=== PATIENT | female | born 1995 | race Caucasian/White ===

== ENCOUNTER 2017-04-01 20:53 | Emergency (ER) | payer SELFPAY ==
[2017-04-01 21:38] LABS: PLATELET COUNT 329 10^3/uL (150-400)
--- NOTE | 2017-04-01 22:11 | EDPHY ---
General - History Smoking Status: Former smoker Narrative: 7:30 a.m.- Patient was stable throughout my shift and now has been accepted at [facility] for inpatient hospitalization by Maureen CHATTERJEE. We have completed the EMTALA form. (Bethany Davis) CHIEF COMPLAINT: M1, suicidal HISTORY OF PRESENT ILLNESS: Patient presents by EMS and [employer] on a hold from [facility] for suicidal ideation. She reports feeling increasingly depressed, lonely and suicidal over the past few weeks. She has had a chronic history of this as well. She has had multiple thoughts of wanting to but has no definitive plan or intent. She says she really wants help and does not want to . She admits to PTSD, depression drug abuse due to this and social circumstances. She admits to cocaine remotely. She admits to methamphetamine and heroin use 5 days ago. She has no chest pain. No shortness of breath. No modifying factors for complaint. PSYCHIATRIC DIAGNOSES: Depression, PTSD M1/DETAINER: [facility] Department at 20:30 on day presentation REVIEW OF SYSTEMS: Ten systems reviewed and are negative unless otherwise noted in the HPI EXAMINATION General Appearance: Alert, no distress Head: normocephalic, atraumatic Eyes: Pupils equal and round, no conjunctival pallor or injection ENT, Mouth: Mucous membranes moist. Airway patent Neck: Normal inspection, supple, non-tender Respiratory: No retractions or distress Cardiovascular: Regular rate. Symmetric radial pulses 2+ Gastrointestinal: No abdominal distention Neurological: A&O, nonfocal, GCS 15. Skin: Warm and dry, no rash Extremities: Nontender, no pedal edema Psychiatric: Flat affect. Depressed mood. Reports suicidal ideation with no definitive plan or intent. DIFFERENTIAL DIAGNOSES: Including but not limited to suicidal ideation, depression, PTSD, bipolar disorder MDM: 9:05 p.m. Suicidal ideation with no plan or intent. The patient arrives on an M1 hold, thus we are proceeding with medical clearance for evaluation. 10:05 p.m. Patient is positive for cocaine and methamphetamine. But she will not be able to be evaluated till 12 hr post positive test. Laboratory studies are otherwise negative including a negative HCG. 11:30 p.m. Notified by RN that the patient has actually been evaluated by [facility]. They do recommend placement and are attempting to find inpatient placement for. 12:30 a.m. Patient has been evaluated and is awaiting placement. At this time I have discussed the case with Dr. Davis She will assume care the patient at this time. Please see her note for final disposition SUPERVISION: Patient was evaluated in conjunction with the supervising physician. Please see their note for details. (Yordy Juan) - Objective Vital Signs: Initial Vital Signs Temperature (C) 97.9 F 04/01/17 21:00 Heart Rate 116 H 04/01/17 21:00 Respiratory Rate 18 04/01/17 21:00 Blood Pressure 124/96 H 04/01/17 21:00 O2 Sat (%) 99 04/01/17 21:00 O2 Delivery Mode Room Air Allergies/Adverse Reactions: No Known Allergies Allergy (Verified 04/01/17 21:32) Home Medications: Medication Instructions Recorded NK [No Known Home Meds] 08/26/14 Laboratory Results: Laboratory Results 04/01/17 21:28 04/01/17 21:28 Departure - Departure Disposition: [facility] Clinical Impression: Suicidal ideation, Polysubstance abuse Condition: Fair Referrals: Patient,NotPresent [Unknown] - As per Instructions
[2017-04-02 07:55] VITALS: RESP 15
[2017-04-02 10:06] VITALS: BP 100/60; PULSE 80; TEMP 97.7; O2SAT 98
== END 2017-04-02 10:06 | disposition short-term general hospital (02) ==
LOC: EDUNIT#
DX: R45.851 Suicidal ideations (principal); F19.10 Other psychoactive substance abuse, uncomplicated; Z87.891 Personal history of nicotine dependence
CPT/HCPCS: 80305; G0480

== ENCOUNTER 2017-05-27 12:38 | Emergency (ER) | payer SELFPAY ==
[~2017-05-27 12:38] MED LIST: CEPHALEXIN 500 MG CAP PO SCH; SULFAMETHOX/TMP 800/160 MG 1 TAB PO SCH
[2017-05-27 12:44] VITALS: TEMP 97.5
--- NOTE | 2017-05-27 13:51 | EDPHY ---
H & P Time Seen by Provider: 05/27/17 13:50 HPI/ROS: CHIEF COMPLAINT: Left middle finger pain and swelling HISTORY OF PRESENT ILLNESS: Patient is had symptoms for 3 weeks. Pain and swelling at the base of the nail and on the ulnar side. No trauma. No blisters. REVIEW OF SYSTEMS: No other symptoms in the hand or finger PAST MEDICAL HISTORY: Hep C and depression. General Appearance: Alert and conversant, cooperative. Swelling from the D IP on the ulnar side of the left middle finger at the base of the nail extending distally. Normal flexion and extension. Normal capillary refill. Does not have proximal palmar tenderness or tenderness in the finger. Emergency Department course/MDM: Patient presents with likely paronychia. Standard sterile technique and 1% lidocaine local digital block anesthesia. Lateral side of the nail unroofed and moderate amount of pus expressed, prescribed Keflex and Bactrim. Dressing applied. Does not appear to have tenosynovitis or deep space finger infection requiring operative intervention. Smoking Status: Former smoker Constitutional: Initial Vital Signs Temperature (C) 36.4 C 05/27/17 12:41 Allergies/Adverse Reactions: No Known Allergies Allergy (Verified 04/01/17 21:32) Home Medications: Medication Instructions Recorded Cephalexin [Keflex] 500 mg PO QID #40 cap 05/27/17 Sulfamethox/Tmp 800/160 mg 1 tab PO BID@1000,2200 #20 tab 05/27/17 [Bactrim Ds] MDM/Departure - Depart Disposition: Home, Routine, Self-Care Clinical Impression: Paronychia of finger Condition: Good Instructions: Paronychia (ED) Prescriptions: Cephalexin [Keflex] 500 mg PO QID #40 cap Sulfamethox/Tmp 800/160 mg [Bactrim Ds] 1 tab PO BID@1000,2200 #20 tab Referrals: Oj Robison MD [Medical Doctor] - 3-4 days, if not improved
== END 2017-05-27 15:16 | disposition home or self-care (01) ==
PROC: 3E0T3BZ Introduction of Anesthetic Agent into Peripheral Nerves and Plexi, Percutaneous Approach (ICD-10-PCS; principal; 2017-05-27)
DX: L03.012 Cellulitis of left finger (principal); Z87.891 Personal history of nicotine dependence

== ENCOUNTER 2017-05-29 15:10 | Emergency (ER) | payer SELFPAY ==
--- NOTE | 2017-05-29 15:50 | EDPHY ---
H & P Stated Complaint: 4 days body aches all over/abd/chest/back/legs/painful to walk Time Seen by Provider: 05/29/17 15:40 HPI/ROS: CHIEF COMPLAINT: Multiple complaints, chest pain, paronychia HISTORY OF PRESENT ILLNESS: 22-year-old homeless female in the ER via private vehicle with 2 complaints. 1st complaint is 2 days of left-sided nonpleuritic chest pain and epigastric pain with no radiation. Worsened with swallowing and eating. No nausea or vomiting. No back pain. No dyspnea. 2nd complaint is recheck of a left middle digit paronychia which was incised and drained in the ER 3 days ago. She was given prescription for antibiotics at that time but left the emergency department before receiving these antibiotics. She notes continued soft tissue swelling in this area with no lymphangitic streaking, no limitations in range of motion. The patient informed the triage nurse in the were notes on the triage note the patient was having difficulty walking however when I interview the patient she denies this and has no complaints of leg pain, difficulty walking , myalgias or arthralgias. REVIEW OF SYSTEMS: A ten point review of systems was performed and is negative with the exception of the items mentioned in the HPI PAST MEDICAL & SURGICAL HISTORY: No pertinent medical or surgical history SOCIAL HISTORY:Nonsmoker. No drug use. No cocaine use. Homeless. PHYSICAL EXAM (Prior to examination, patient consented to physical exam, hands were washed and my usual and customary physical exam procedures followed) 1) GENERAL: Well-developed, well-nourished, alert and oriented. Appears to be in no acute distress. Appears nontoxic 2) HEAD: Normocephalic, atraumatic 3) HEENT: Pupils equal, round, reactive to light bilaterally. Sclera anicteric. 4) NECK: Full range of motion, no meningeal signs. 5) LUNGS: Clear auscultation bilaterally, no wheezes, no rhonchi, no retractions. 6) HEART: Regular rate and rhythm, no murmur, no heave, no gallop. Chest wall nontender. 7) ABDOMEN: No guarding, mild tenderness to palpation midline epigastrium,, negative McBurney's, negative Khan's, negative Rovsing's, negative peritoneal sign 8) MUSCULOSKELETAL: Left upper extremity: Paronychia of the left middle digit. Negative kanavel, no lymphangitic streaking, pain-free range of motion, no pain along flexor tendon sheath, no abnormal flexion of the digit. 9) BACK: No CVA tenderness, no midline vertebral tenderness, no fluctuance, no step-off, no obvious trauma, no visual or palpable abnormality. 10) SKIN: No rash, no petechiae. 11) Psychiatric: Patient is oriented X 3, there is no agitation. 12) NEURO: Awake, alert, and oriented to person, place and time. Answers questions appropriately. There were no obvious focal neurologic abnormalities. No cerebellar dysfunction. Normal steady gait. Upper and lower extremities bilaterally with strength 5 / 5, reflexes 2+. DIFFERENTIAL DIAGNOSIS: In no particular order, including but not limited to biliary colic, cholecystitis, peptic ulcer disease, pancreatitis, and gastroenteritis, paronychia, infectious tenosynovitis, deep space infection, cellulitis This is a partial list of diagnoses considered. These considerations are based on history, physical exam, past history and reassessment. - Personal History LMP (Females 10-55): Over 28 Days Ago Current Tetanus/Diphtheria Vaccine: Yes - Medical/Surgical History Hx Asthma: No Hx Chronic Respiratory Disease: No Hx Diabetes: No Hx Cardiac Disease: No Hx Renal Disease: No Hx Cirrhosis: No Hx Alcoholism: No Hx HIV/AIDS: No Hx Splenectomy or Spleen Trauma: No Other PMH: prior vaginal infection; coccyx fx Apr 2012, +ANTIBODIES TO HEP C, depression - Social History Smoking Status: Former smoker Constitutional: Initial Vital Signs Temperature (C) 36.7 C 05/29/17 15:14 Heart Rate 83 05/29/17 15:14 Respiratory Rate 18 05/29/17 15:14 Blood Pressure 110/74 05/29/17 15:14 O2 Sat (%) 99 05/29/17 15:14 O2 Delivery Mode Room Air Allergies/Adverse Reactions: No Known Allergies Allergy (Verified 05/29/17 15:14) Home Medications: Medication Instructions Recorded Cephalexin [Keflex] 500 mg PO QID #40 cap 05/27/17 Sulfamethox/Tmp 800/160 mg 1 tab PO BID@1000,2200 #20 tab 05/27/17 [Bactrim Ds] Pantoprazole Sodium [Protonix 40mg 40 mg PO DAILY #30 tab 05/29/17 (RX)] Medical Decision Making Procedures: Procedure: Paronychia drainage. The patient's paronychia was located on the left middle digit. I obtained verbal consent from the patient to drain the the paronychia who was informed about the possibility of bleeding and pain. The paronychia was incised with a scalpel and a mild amount of purulent drainage was expressed. I irrigated the wound and placed some packing. The patient tolerated the procedure well. The procedure was performed by myself. ED Course/Re-evaluation: 4:30 p.m.: Re-evaluation, sleeping 4:55 p.m.: Re-evaluation, sleeping, easily woken. Patient was re-evaluated with serial examinations. Regarding her paronychia this was inside drained achieving relief is. Doubt infectious flexor tenosynovitis or deep space infection. Her antibiotics were Keflex and Bactrim have been filled via the hospital MAP program and I encouraged her to take these which she was not previously doing. Regarding her left-sided chest pain and epigastric pain, symptoms have been occurring for 2 days, she has normal sinus rhythm on EKG, normal chest x-ray, normal troponin, normal D-dimer. I think that WI, PE less than likely in this patient. Doubt acute pancreatitis. Discussed possible esophagitis, peptic ulcer disease. I have given her GI cocktail and recommend starting on proton pump inhibitor. - Data Points Laboratory Results: Laboratory Results 05/29/17 15:59 05/29/17 15:59 05/29/17 05/29/17 05/29/17 15:59 15:59 15:59 WBC RBC Hgb Hct MCV MCH MCHC RDW Plt Count MPV Neut % (Auto) Lymph % (Auto) [facility] % (Auto) Eos % (Auto) Baso % (Auto) Nucleat RBC Rel Count Absolute Neuts (auto) Absolute Lymphs (auto) Absolute Monos (auto) Absolute Eos (auto) Absolute Basos (auto) Absolute Nucleated RBC Immature Gran % Immature Gran # D-Dimer 0.47 ug/mLFEU ug/mLFEU (0.00-0.50) Sodium 142 mEq/L mEq/L (135-145) Potassium 4.3 mEq/L mEq/L (3.5-5.2) Chloride 105 mEq/L mEq/L (97-110) Carbon Dioxide 30 mEq/l mEq/l (22-31) Anion Gap 7 mEq/L L mEq/L (8-16) BUN 8 mg/dL mg/dL (7-23) Creatinine 0.7 mg/dL mg/dL (0.6-1.0) Estimated GFR > 60 Glucose 80 mg/dL mg/dL (70-100) Calcium 9.3 mg/dL mg/dL (8.5-10.4) Total Bilirubin 0.2 mg/dL mg/dL (0.1-1.4) Conjugated Bilirubin 0.1 mg/dL mg/dL (0.0-0.5) Unconjugated Bilirubin 0.1 mg/dL mg/dL (0.0-1.1) AST 16 IU/L IU/L (14-46) ALT 27 IU/L IU/L (9-52) Alkaline Phosphatase 61 IU/L IU/L (38-126) Troponin I < 0.012 ng/mL ng/mL (0.000-0.034) Total Protein 6.3 g/dL g/dL (6.3-8.2) Albumin 3.5 g/dL g/dL (3.5-5.0) Lipase 53 IU/L IU/L (23-300) Beta HCG, Qual NEGATIVE 05/29/17 15:59 WBC 6.76 10^3/uL 10^3/uL (3.80-9.50) RBC 4.31 10^6/uL 10^6/uL (4.18-5.33) Hgb 11.6 g/dL L g/dL (12.6-16.3) Hct 36.5 % L % (38.0-47.0) MCV 84.7 fL fL (81.5-99.8) MCH 26.9 pg L pg (27.9-34.1) MCHC 31.8 g/dL L g/dL (32.4-36.7) RDW 14.6 % % (11.5-15.2) Plt Count 325 10^3/uL 10^3/uL (150-400) MPV 8.1 fL L fL (8.7-11.7) Neut % (Auto) 54.8 % % (39.3-74.2) Lymph % (Auto) 35.8 % % (15.0-45.0) [facility] % (Auto) 7.8 % % (4.5-13.0) Eos % (Auto) 1.2 % % (0.6-7.6) Baso % (Auto) 0.3 % % (0.3-1.7) Nucleat RBC Rel Count 0.0 % % (0.0-0.2) Absolute Neuts (auto) 3.70 10^3/uL 10^3/uL (1.70-6.50) Absolute Lymphs (auto) 2.42 10^3/uL 10^3/uL (1.00-3.00) Absolute Monos (auto) 0.53 10^3/uL 10^3/uL (0.30-0.80) Absolute Eos (auto) 0.08 10^3/uL 10^3/uL (0.03-0.40) Absolute Basos (auto) 0.02 10^3/uL 10^3/uL (0.02-0.10) Absolute Nucleated RBC 0.00 10^3/uL 10^3/uL (0-0.01) Immature Gran % 0.1 % % (0.0-1.1) Immature Gran # 0.01 10^3/uL 10^3/uL (0.00-0.10) D-Dimer Sodium Potassium Chloride Carbon Dioxide Anion Gap BUN Creatinine Estimated GFR Glucose Calcium Total Bilirubin Conjugated Bilirubin Unconjugated Bilirubin AST ALT Alkaline Phosphatase Troponin I Total Protein Albumin Lipase Beta HCG, Qual Medications Given: Discontinued Medications Al Hydroxide/Mg Hydroxide (Maalox Susp) 30 ml PO ONCE ONE Stop: 18 16:34 Last Admin: 18 16:59 Dose: 30 ml Hyoscyamine Sulfate (Levsin, Hyomax-Sl) 0.25 mg PO ONCE ONE Stop: 18 16:34 Last Admin: 18 16:58 Dose: 0.25 mg Lidocaine (Lidocaine 2% Viscous) 15 ml PO ONCE ONE Stop: 18 16:34 Last Admin: 18 16:59 Dose: 15 ml Departure - Departure Disposition: Home, Routine, Self-Care Clinical Impression: Paronychia middle digit, Epigastric pain Chest pain Qualifiers: Chest pain type: unspecified Qualified Code(s): R07.9 - Chest pain, unspecified Condition: Good Instructions: Chest Pain (ED), Paronychia (ED), Epigastric Pain (ED) Additional Instructions: Seek medical attention if you develop new or worsening chest pain, if you develop shortness of breath, if you develop limitations in range of motion of the digit, if you develop redness going up the finger, or any other symptoms that concern you. Referrals: [facility],. [Clinic] - 05/31/17 Prescriptions: Pantoprazole Sodium [Protonix 40mg (RX)] 40 mg PO DAILY #30 tab
--- NOTE | 2017-05-29 15:55 | CPEKG ---
Heart Rate: 78 RR Interval: 769 P-R Interval: 124 QRSD Interval: 90 QT Interval: 376 QTC Interval: 429 P [place]: 37 QRS [place]: 40 T Wave [place]: 38 EKG Severity - NORMAL ECG - EKG Impression: SINUS RHYTHM Electronically Signed By: Jarocho Fernández 29-May-2017 18:39:43
[2017-05-29 16:10] LABS: PLATELET COUNT 325 10^3/uL (150-400)
[2017-05-29] MEDS ORDERED: LIDOCAINE 2% VISCOUS 15 ML UDCUP PO ONE (16:33)
[2017-05-29] MEDS ORDERED: MAG HYDROX/AL HYDROX/SIMETH 30 ML UDCUP PO ONE (16:33)
[2017-05-29] MEDS ORDERED: HYOSCYAMINE SULFATE 0.125 MG TAB PO ONE (16:33)
--- NOTE | 2017-05-29 17:24 | ASMTCMCOM ---
CM Note CM Note Notes: Patient returns to the ER after being here 3 days ago with a "bite" on her L middle finger. I Mapped antibiotics for her at that time, but she left before she was discharged. Today she returns with continued pain/swelling of her finger which is now drained and her antibiotics will be sent with her. I have met with patient to discuss importance of following through with taking her antibiotics, as well as to inquire as to whether she has applied for Medicaid. Patient tells this CM that she has applied for Medicaid but is not eligible due to her social security income. I have encouraged her to visit [employer] [place] website to look into income based health care coverage. Date Signed: 05/29/2017 05:23 PM Electronically Signed By:Abby Waddell RN
[2017-05-29 17:38] VITALS: BP 115/70; PULSE 78; RESP 16; TEMP 97.9; O2SAT 96
== END 2017-05-29 17:40 | disposition home or self-care (01) ==
PROC: 0H9GXZZ Drainage of Left Hand Skin, External Approach (ICD-10-PCS; principal; 2017-05-29)
DX: R07.9 Chest pain, unspecified (principal); R10.13 Epigastric pain; L03.012 Cellulitis of left finger; Z87.891 Personal history of nicotine dependence